=== PATIENT | male | born 1955 | race Hispanic/Latino ===

== ENCOUNTER → 2024-04-24 | Outpatient (CLI) | payer OTHER ==
[2024-04-24 22:32] VITALS: PULSE 59; RESP 18
[2024-04-24 23:03] VITALS: PULSE 55; RESP 16
[2024-04-24 23:37] VITALS: PULSE 56; RESP 16
[2024-04-25] VITALS (11 sets, daily range): PULSE 44–117; RESP 14–20
== END | disposition home or self-care (01) ==
LOC: SLP 20:06
PROVIDERS: ATTEND Internal Medicine Cardiovascular Disease
DX: G47.33 Obstructive sleep apnea (adult) (pediatric) (principal)
CPT/HCPCS: 95810

== ENCOUNTER 2024-04-29 18:28 | Emergency (ER) | payer OTHER ==
[~2024-04-29] VITALS: Ht 172.7 cm; Wt 117.9 kg
[2024-04-29 18:39] VITALS: BP 133/76; PULSE 69; RESP 18; TEMP 98.3; O2SAT 97
[2024-04-29] MEDS ORDERED: INDO50CA98 PO (18:47)
[2024-04-29] MEDS: HYDROcodone/APAP 5/325 1 TAB TABLET PO STA (18:49)
[2024-04-29] MEDS: ketOROlac 15MG/ML VIAL (15MG/ML) IM STA (18:50)
== END 2024-04-29 19:02 | disposition home or self-care (01) ==
LOC: EDH 18:28
DX: M10.9 Gout, unspecified (principal); I48.91 Unspecified atrial fibrillation; E78.00 Pure hypercholesterolemia, unspecified; I10 Essential (primary) hypertension; Z90.49 Acquired absence of other specified parts of digestive tract
CPT/HCPCS: 99283; 96372; J1885

== ENCOUNTER 2024-08-20 16:08 | Emergency (ER) | payer OTHER ==
[~2024-08-20] VITALS: Ht 172.7 cm; Wt 108.9 kg
[~2024-08-20 16:08] MED LIST: INDO50CA98 PO
--- NOTE | 2024-08-20 17:06 | ERN ---
General Chief Complaint: Cough Stated Complaint: FEVER, SORE THROAT, LOWER BACK HURTS Source: patient History of Present Illness Initial Comments PATIENT IS A 69-YEAR-OLD MALE COMING IN COMPLAINING OF COUGH AND CONGESTION. PATIENT STATES THAT HE HAS BEEN COUGHING SO MUCH THAT HIS BACK HURTS. PER PATIENT HE WAS EXPOSED TO URI BY . BOTH OF THEM ARE HAVING SIMILAR SYMPTOMS. Allergies: Coded Allergies: No Known Allergies (Unverified Allergy, Unknown, 08/20/24) Home Meds Active Scripts Indomethacin (Indomethacin) 50 Mg Capsule, 1 CAP PO TID for arthritis for 3 Days, #30 CAP 0 Refills with food Prov:JED HAHN NP 04/29/24 Past Medical History Past Medical History: A-Fib, High Cholesterol, Hypertension Past Surgical History: Appendectomy, Other Surgical History Other: ARM SX ROS Dictation CONSTITUTIONAL: NO CHILLS, NO FEVER, NO WEAKNESS, NO DIAPHORESIS, NO MALAISE. HEAD/FACE: NO SIGNS OF TRAUMA. EENT: NO EYE PAIN, NO BLURRED VISION, NO TEARING, NO DOUBLE VISION, NO EAR PAIN, NO EAR DISCHARGE, NO NOSE PAIN, NO NASAL CONGESTION, NO THROAT PAIN, NO THROAT SWELLING, NO MOUTH PAIN. RESPIRATORY: NO COUGH, NO ORTHOPNEA, NO SOB, NO STRIDOR, NO WHEEZING. CARDIOVASCULAR: NO CHEST PAIN, NO EDEMA, NO PALPITATIONS, NO SYNCOPE. GASTROINTESTINAL/ABDOMINAL: NO ABDOMINAL PAIN, NO CONSTIPATION, NO DIARRHEA, NO NAUSEA, NO VOMITING. GENITOURINARY: NO ABNORMAL DISCHARGE, NO DYSURIA, NO FREQUENT URINATION, NO HEMATURIA. NO COMPLAINTS OF PAIN IN THE GENITALS. MUSCULOSKELETAL: NO BACK PAIN, NO GOUT, NO JOINT PAIN, NO JOINT SWELLING, NO MUSCLE PAIN, NO MUSCLE STIFFNESS, NO NECK PAIN. INTEGUMENTARY: NO CHANGE IN COLOR, NO CHANGE IN HAIR/NAILS, NO DRYNESS, NO LESION, NO LUMPS, NO RASH. NEUROLOGICAL/PSYCH: NO ANXIETY, NOT DEPRESSED, NO EMOTIONAL PROBLEM, NO HEADACHE, NO NUMBNESS, NO PRE-EXISTING DEFICIT, NO HISTORY OF SEIZURES, NO TREMORS, NO WEAKNESS. HEMATOLOGIC/LYMPHATIC: NOT ANEMIC, NO HISTORY OF BLOOD CLOTS, NO APPARENT BLEEDING, NO BRUISING, GLANDS NOT SWOLLEN. ALL SYSTEMS NEGATIVE, EXCEPT NOTED. Physical Exam Physical Exam Dictation VITAL SIGNS: REVIEWED. GENERAL APPEARANCE: ALERT, ORIENTED X3, NO ACUTE DISTRESS, OBESE. HEAD AND FACE: NON-TRAUMATIC. EYES: PERRL, PINK CONJUNCTIVAS, EYELID NO TRAUMA, ANTERIOR CHAMBER CLEAR. EARS: PINNAS INTACT AND NO SIGNS OF TRAUMA OR ERYTHEMA. EAR CANALS CLEAR AND NO DISCHARGE. TMS NO ERYTHEMA. NOSE: NO DISCHARGE, NO BLEEDING. OROPHARYNX: MOUTH NORMAL, TEETH NO CARIES, TONGUE PINK. PHARYNX CLEAR, NO ERYTHEMA. TONSILS NO EXUDATES, NO ABSCESSES NOTED. MUCOUS MEMBRANE MOIST. NECK: SUPPLE, NON-TENDER, NO THYROMEGALY, NO MASSES, NO JVD, NO BRUITS. BREAST: DEFERRED. CHEST: NO TENDERNESS, NO CREPITUS, NO PARADOXICAL MOVEMENT, NO RETRACTIONS. LUNGS: CLEAR, WELL-VENTILATED, SYMMETRIC, NO RALES, NO WHEEZING, NO RHONCHI, NO STRIDOR, GOOD BREATH SOUNDS BILATERALLY. HEART: REGULAR RATE, REGULAR RHYTHM, NO MURMUR, NO GALLOPS. VASCULAR: NO PERIPHERAL EDEMA. ABDOMEN: SOFT, POSITIVE BOWEL SOUNDS, NONDISTENDED, NO GUARDING, NONTENDER, NO REBOUND, NO MASSES NO HEPATOMEGALY, NO SPLENOMEGALY, NO MUNOZ'S SIGN, NO HERNIAS. RECTAL: DEFERRED. GENITAL: DEFERRED. NEUROLOGICAL: NORMAL SPEECH, GROSS MOTOR FUNCTION INTACT, GROSS SENSORY FUNCTION INTACT. MUSCULOSKELETAL: NECK NONTENDER, FULL RANGE OF MOTION, BACK NONTENDER, FULL RANGE OF MOTION. EXTREMITIES: NONTENDER, FULL RANGE OF MOTION. SKIN: COLOR PINK, DRY, NO TURGOR, NO RASH, NO LACERATIONS, NO ABRASIONS, NO CONTUSIONS. LYMPHATICS: DEFERRED. Results Laboratory and Microbiology Lab and Micro Result Laboratory Tests Test 08/20/24 17:00 Influenza Type A Antigen Negative For Type A Influenza Type B Antigen Negative For Type B SARS-CoV-2, RNA, NAAT NEGATIVE SARS CoV-2 Group A Streptococcus Rapid negative (NEGATIVE) Labs Reviewed?: Yes EKG/XRAY/US/CT/MRI X-RAY Comment CHEST XRAY- RIGHT PERIBRONCHIAL CONGESTION MDM MDM: DIFFERENTIAL DIAGNOSIS: INFLUENZA A, URI PATIENT IS A 69-YEAR-OLD MALE COMING IN TO BE EVALUATED FOR URI SYMPTOMS. WAS FOUND TO BE INFLUENZA A POSITIVE. PATIENT WILL BE DISCHARGED WITH TAMIFLU FOR INFLUENZA A. I ADVISED HIM APPROPRIATE FOLLOW UP WITH PCP IN 1-2 DAYS. ED Course Orders Procedure Category Date Status Time Covid Rna Naat LAB 08/20/24 Complete 16:38 Rapid (Group A Strep) LAB 08/20/24 Complete 16:38 Influenza Type A & B, LAB 08/20/24 Complete Rapid 16:38 Chest 1vw RAD 08/20/24 Taken 16:38 Vital Signs Date Time Temp Pulse Resp B/P (MAP) Pulse Ox O2 Delivery O2 Flow Rate FiO2 08/20/24 16:36 99.3 61 16 125/71 97 Room Air 0 DX & DISP Disposition: Discharge Departure Impression: Primary Impression: Influenza A Condition: Stable Scripts Doxycycline Hyclate (Doxycycline Hyclate) 100 Mg Capsule 1 CAP PO BID for 10 Days, #20 CAP 0 Refills Prov: OSMANY BENNETT MD 08/20/24 Oseltamivir Phosphate (Tamiflu) 75 Mg Cap 1 CAP PO BID for 5 Days, #10 CAP 0 Refills Prov: OSMANY BENNETT MD 08/20/24 Additional Instructions: FOLLOW-UP WITH PRIMARY CARE PROVIDER IN 1 TO 2 DAYS. TAKE MEDICATIONS DIRECTED HERE IN THE EMERGENCY ROOM. OKAY TO CONTINUE HOME MEDICATIONS UNLESS O THERWISE DISCUSSED DURING YOUR VISIT IN THE EMERGENCY ROOM TODAY. RETURN TO YOUR NEAREST EMERGENCY ROOM IF SYMPTOMS WORSEN OR IF THERE IS NO IMPROVEMENT. CALL 911 IF YOU NEED IMMEDIATE ASSISTANCE. TAKE TYLENOL [id number] NEEDED AND IF NO CONTRAINDICATIONS ARE PRESENT. INCREASE ORAL HYDRATION. A WOUND CULTURE OR URINE CULTURE WAS ORDERED HERE IN THE EMERGENCY ROOM DEPARTMENT PLEASE FOLLOW-UP WITH PRIMARY CARE PROVIDER AND ADVISE THEM TO GET REPEAT PORTS FROM OUR FACILITY. IF YOU HAD ANY STEVE WRAP/SPLINTS THAT WERE APPLIED HERE, PLEASE DO NOT REMOVE THEM UNTIL YOU SEE YOUR PRIMARY CARE OR SPECIALTY. REFERRALS: Referrals: YOAV DING MD (PCP) Time of Disposition: 18:09 OSMANY BENNETT MD Aug 20, 2024 17:06
[2024-08-20 17:48] LABS: RAPID GROUP A STREP negative (NEGATIVE); SARS-CoV-2, RNA, NAAT NEGATIVE SARS CoV-2 (NEGATIVE)
[2024-08-20 17:58] LABS: INFLUENZA TYPE A Negative For Type A (NEGATIVE); INFLUENZA TYPE B Negative For Type B (NEGATIVE)
[2024-08-20] MEDS ORDERED: OSEL75 PO (18:10)
[2024-08-20] MEDS ORDERED: DOXY100C5 PO (18:10)
[2024-08-20 18:21] VITALS: BP 126/71; PULSE 65; RESP 17; TEMP 99.1; O2SAT 98
--- NOTE | 2024-08-20 20:17 | HMCIMG ---
CHEST 1VW REASON: COUGH COMPARISON: None. FINDINGS: Single view of the chest was obtained. Lungs are clear. Heart size is normal. There is no pulmonary vascular congestion. Mediastinum and bony thorax appear unremarkable. IMPRESSION: 1. Normal single view chest x-ray.
== END 2024-08-20 18:29 | disposition home or self-care (01) ==
LOC: EDH 16:08
DX: J10.1 Influenza due to other identified influenza virus with other respiratory manifestations (principal); I48.91 Unspecified atrial fibrillation; E78.00 Pure hypercholesterolemia, unspecified; I10 Essential (primary) hypertension; Z90.49 Acquired absence of other specified parts of digestive tract; Z20.822 Contact with and (suspected) exposure to COVID-19
CPT/HCPCS: 71045; 87635; 87804; 87880; 99284

== ENCOUNTER 2024-09-04 18:16 | Emergency (ER) | payer OTHER ==
[~2024-09-04] VITALS: Ht 172.7 cm; Wt 100.7 kg
[~2024-09-04 18:16] MED LIST changes: +DOXY100C5 PO; +OSEL75 PO
[2024-09-04 21:16] LABS: BASOPHILS # (AUTO) 0.04 K/uL (0.00-0.20); BASOPHILS % (AUTO) 0.7 % (0.0-5.0); EOSINOPHILS # (AUTO) 0.17 K/uL (0.00-0.70); EOSINOPHILS % (AUTO) 3.1 % (0.0-8.0); HEMATOCRIT 45.5 % (42-54); IMMATURE GRANULOCYTE ABSOLUTE 0.02 K/uL (0-1); LYMPHOCYTES # (AUTO) 1.3 K/uL (1.0-4.8); LYMPHOCYTES % (AUTO) 24.2 % (21.0-51.0); MEAN CORPUSCULAR HEMOGLOBIN 31.7 pg (27.0-33.0); MEAN CORPUSCULAR HGB CONC 33.4 g/dL (32.0-36.0); MONOCYTES # (AUTO) 0.6 K/uL (0.1-1.0); MONOCYTES % (AUTO) 11.8 % (3.0-13.0); NEUTROPHILS # (AUTO) 3.2 K/uL (1.8-7.7); NEUTROPHILS % (AUTO) 59.8 % (40.0-77.0); PLATELET COUNT (AUTO) 140 K/uL (130-400); RED BLOOD CELL COUNT(AUTO) 4.79 MIL/uL (4.50-6.20); RED CELL DISTRIBUTION WIDTH 12.3 % (11.0-15.5); WHITE BLOOD COUNT (AUTO) 5.4 K/uL (4.8-10.8)
[2024-09-04 21:22] LABS: CREATININE 1.4 mg/dL (0.5-1.3); INR 1.59 (0.85-1.15); POTASSIUM 3.7 mmol/L (3.5-5.1); PROTHROMBIN TIME 16.1 SEC (9.6-11.6)
--- NOTE | 2024-09-04 21:37 | HMCIMG ---
US VENOUS DOPPLER UNILATERAL HISTORY: Left lower abdominal pain COMPARISON: None TECHNIQUE: Left lower extremity venous Doppler ultrasound study was performed. FINDINGS: The left common femoral, femoral, popliteal, and posterior tibial veins are visualized. Normal flow with augmentation and compressibilities are demonstrated. Left greater saphenous vein is patent. There is left suprapatellar bursitis measuring 5.3 x 1.2 x 5.1 cm IMPRESSION: 1. No evidence of deep venous thrombosis is seen. Left knee suprapatellar bursitis.
--- NOTE | 2024-09-04 21:42 | HMCIMG ---
KNEE 3VWS LT HISTORY: Pain and swelling COMPARISON: None TECHNIQUE: 3 images of left knee were obtained. FINDINGS: There is no acute displaced fracture or dislocation. Degenerative changes are seen. IMPRESSION: 1. Findings as described above.
[2024-09-04 22:32] LABS: ERYTHROCYTE SEDIMENTATION RATE 21 MM/HR (0-20)
[2024-09-04] MEDS ORDERED: PRED20TA3 PO (23:42)
--- NOTE | 2024-09-04 23:42 | ERN ---
General Chief Complaint: Knee Injury/Swelling Stated Complaint: KNEE PAIN Time Seen by MD: 18:22 Time Seen by Midlevel: 18:22 Source: patient History of Present Illness Initial Comments 69-year-old male who presents to the emergency department due to left knee pain onset yesterday. Patient reports he has been noticing swelling but denies any injuries, trauma, fevers, numbness or further associated symptoms. Patient states he has been previously diagnosed with gout but is no longer taking medication. Last gout flare-up was approximately two years ago. PMHx AFib, hypercholesterolemia, HTN Allergies: Coded Allergies: No Known Allergies (Unverified Allergy, Unknown, 08/20/24) Home Meds Active Scripts Prednisone (Prednisone) 20 Mg Tablet, 1 TAB PO DAILY for 5 Days, #5 TAB 0 Refills Prov:FLORY WALKER 09/04/24 Doxycycline Hyclate (Doxycycline Hyclate) 100 Mg Capsule, 1 CAP PO BID for 10 Days, #20 CAP 0 Refills Prov:OSMANY BENNETT MD 08/20/24 Oseltamivir Phosphate (Tamiflu) 75 Mg Cap, 1 CAP PO BID for 5 Days, #10 CAP 0 Refills Prov:OSMANY BENNETT MD 08/20/24 Indomethacin (Indomethacin) 50 Mg Capsule, 1 CAP PO TID for arthritis for 3 Days, #30 CAP 0 Refills with food Prov:JED HAHN NP 04/29/24 Past Medical History Past Medical History: A-Fib, High Cholesterol, Hypertension Past Surgical History: Appendectomy, Other Surgical History Other: ARM SX ROS Dictation Constitutional: Negative for fever,chills, and weight loss Eyes: Negative for injury, pain,redness, and discharge ENT: Negative for injury,pain or swelling Cardiovascular: Negative for chest pain, palpitations, and edema Respiratory: Negative for shortness of breath, cough, and wheezing, Abdomen/GI: Negative for abdominal pain, nausea, vomiting, diarrhea, and constipation Back: Negative for injury and pain : Negative for painful urination, bleeding or discharge MS/Extremity: Positive for left knee pain Negative for injury and deformity Skin: Negative for rash, and discoloration Neuro: Negative for headache, weakness, numbness, tingling, and seizure Psych: Negative for suicide ideation, homicidal ideation, and hallucinations Physical Exam Physical Exam Dictation General: awake, alert, no acute distress Head/Face: Normocephalic, atraumatic Eyes: PERRL, EOMI, normal conjuctiva ENT: oral cavity clear, TMs clear, oral mucosa moist Neck: Supple, normal range of motion Cardiovascular: RRR, normal S1/S2 Respiratory: CTAB, no respiratory distress, no rales or wheezes Abdomen: Soft, non-tender, non-distended, normal bowel sounds, no guarding or rebound. Skin: Warm, dry, normal turgor, no rash MS/Extremity: Pulses equal, no cyanosis, neurovascular intact, FROM Neuro: COAx4, GCS 15, strength 5/5, CN 2-12 intact, normal cerebellar exam, normal gait, Psych: Normal behavior, mood, and affect normal Results Laboratory and Microbiology Lab and Micro Result Laboratory Tests Test 09/04/24 20:32 White Blood Count 5.4 K/uL (4.8-10.8) Red Blood Count 4.79 MIL/uL (4.50-6.20) Hemoglobin 15.2 g/dL (14.0-18.0) Hematocrit 45.5 % (42-54) Mean Corpuscular Volume 95.0 fL (79-99) Mean Corpuscular Hemoglobin 31.7 pg (27.0-33.0) Mean Corpuscular Hemoglobin Concent 33.4 g/dL (32.0-36.0) Red Cell Distribution Width 12.3 % (11.0-15.5) Platelet Count 140 K/uL (130-400) Mean Platelet Volume 10.6 fL (7.5-10.5) H Immature Granulocyte % (Auto) 0.4 % (0-1) Neutrophils (%) (Auto) 59.8 % (40.0-77.0) Lymphocytes (%) (Auto) 24.2 % (21.0-51.0) Monocytes (%) (Auto) 11.8 % (3.0-13.0) Eosinophils (%) (Auto) 3.1 % (0.0-8.0) Basophils (%) (Auto) 0.7 % (0.0-5.0) Neutrophils # (Auto) 3.2 K/uL (1.8-7.7) Lymphocytes # (Auto) 1.3 K/uL (1.0-4.8) Monocytes # (Auto) 0.6 K/uL (0.1-1.0) Eosinophils # (Auto) 0.17 K/uL (0.00-0.70) Basophils # (Auto) 0.04 K/uL (0.00-0.20) Absolute Immature Granulocyte (auto 0.02 K/uL (0-1) Nucleated Red Blood Cells 0.0 % (0.0-0.19) Erythrocyte Sedimentation Rate 21 MM/HR (0-20) H Prothrombin Time 16.1 SEC (9.6-11.6) H Prothromb Time International Ratio 1.59 (0.85-1.15) H Activated Partial Thromboplast Time 40.0 SEC (26.3-35.5) H Sodium Level 137 mmol/L (136-145) Potassium Level 3.7 mmol/L (3.5-5.1) Chloride Level 103 mmol/L (101-111) Carbon Dioxide Level 33 mmol/L (21-32) H Blood Urea Nitrogen 23 mg/dL (7-18) H Creatinine 1.4 mg/dL (0.5-1.3) H Glomerular Filtration Rate Calc 55 mL/min (>90) Random Glucose 95 mg/dL (70-105) Total Calcium 8.5 mg/dL (8.5-10.1) Labs Reviewed?: Yes EKG/XRAY/US/CT/MRI X-RAY Comment REASON: Pain, swelling ORDERING PHYSICIAN: FLORY WALKER PROCEDURE: KNEE 3V LT - KNEE 3VWS LT KNEE 3VWS LT HISTORY: Pain and swelling COMPARISON: None TECHNIQUE: 3 images of left knee were obtained. FINDINGS: There is no acute displaced fracture or dislocation. Degenerative changes are seen. IMPRESSION: 1. Findings as described above. DICTATED BY: LORE GA MD DATE: 09/04/242136 Ultrasound Comment REASON: LEFT LE PAIN ORDERING PHYSICIAN: FLORY WALKER PROCEDURE: VENOUS UNI - US VENOUS DOPPLER UNILATERAL US VENOUS DOPPLER UNILATERAL HISTORY: Left lower abdominal pain COMPARISON: None TECHNIQUE: Left lower extremity venous Doppler ultrasound study was performed. FINDINGS: The left common femoral, femoral, popliteal, and posterior tibial veins are visualized. Normal flow with augmentation and compressibilities are demonstrated. Left greater saphenous vein is patent. There is left suprapatellar bursitis measuring 5.3 x 1.2 x 5.1 cm IMPRESSION: 1. No evidence of deep venous thrombosis is seen. Left knee suprapatellar bursitis. DICTATED BY: LORE GA MD DATE: 09/04/242132 [facility] MDM: Differential diagnosis: Fracture, subluxation, strain, sprain, osteoarthritis, gout Rationale: 69-year-old male who presents to the emergency department due to left knee pain onset yesterday. Patient reports he has been noticing swelling but denies any injuries, trauma, fevers, numbness or further associated symptoms. Patient states he has been previously diagnosed with gout but is no longer taking medication. Last gout flare-up was approximately two years ago. PMHx AFib, hypercholesterolemia, HTN Per physical examination no elevated WBC, sed rate mildly elevated at 21. Based on patient's left calf and thigh tenderness on physical examination venous ultrasound performed to the left lower extremity to rule out DVTs. Ultrasound negative for DVT but indicates suprapatellar bursitis. X-ray of the left knee indicates no acute fractures, dislocations. Per physical examination patient has limited range of motion of the left knee, tenderness to palpation, stephanie rovascularly intact. Initial dose of steroid administered in the ED. Case discussed with Dr. Roman ED attending, she evaluated patient and recommended patient be prescribed steroids for osteoarthritis diagnosis. Patient was educated on findings and diagnosis. Advised to follow up with PCP. Return to the emergency department if any worsening symptoms. Patient verbalized underst anding. Patient stable for discharge. Ed course delayed due to pending official ultrasound report. There are no social concerns with this patient. I independently interpreted the test that were performed, results were reviewed by me and considered findings on radiology if ordered. Medical management and examination interpretation discussions were had by me with other qualified healthcare professionals as indicated for the patient's care. ED Course Orders Procedure Category Date Status Time Cbc With Differential LAB 09/04/24 Complete 19: Basic Metabolic Panel LAB 09/04/24 Complete 19: Pt And Ptt LAB 09/04/24 Complete 19:26 Erythrocyte LAB 09/04/24 Complete Sedimentation Rate 19:26 Knee 3vws Lt RAD 09/04/24 Resulted 19:26 Us Venous Doppler US 09/04/24 Resulted Unilateral 19:26 Dexamethasone 4mg/Ml PHA 09/04/24 Complete 1ml Vial (Dexametha 23:30 Current Medications Medications (Trade) Dose Ordered Sig/Lauren Route PRN Reason Start Time Stop Time Status Last Admin Dose Admin Dexamethasone Sodium Phosphate (dexaMETHasone 4MG/ML 1ML VIAL) 4 mg ONCE ONCE IM 09/04/24 23:30 09/04/24 23:31 DC 09/04/24 23:49 Vital Signs Date Time Temp Pulse Resp B/P (MAP) Pulse Ox O2 Delivery O2 Flow Rate FiO2 09/04/24 23:46 98.6 70 20 132/77 100 Room Air* 0 21 09/04/24 22:07 98.6 66 20 138/74 100 Room Air* 0 21 09/04/24 18:47 98.2 79 16 135/70 97 Room Air DX & DISP Disposition: Discharge Departure Impression: Primary Impression: Osteoarthritis Additional Impression: Suprapatellar bursitis Condition: Stable Scripts Prednisone (Prednisone) 20 Mg Tablet 1 TAB PO DAILY for 5 Days, #5 TAB 0 Refills Prov: FLORY WALKER 09/04/24 Additional Instructions: Discharge home. Rest. Follow up with primary care DrAnnie in 24 hours. Return to the ER for any acute changes or worsening symptoms. If any medications were prescribed take as directed. Okay to continue home medications unless otherwise discussed during your visit in the emergency room today. Patient was also advised to follow-up with primary care physician in 1 to 2 days for continued monitoring. Referrals: EDER ROOT MD (PCP) I performed the substantive portion of the visit. I have reviewed and personally made and approve the management plan that is documented in the notes by myself or the REBECA. I acknowledge full responsibility for the patient's management plan. FLORY WALKER Sep 04, 2024 23:42
[2024-09-04 23:46] VITALS: BP 132/77; PULSE 70; RESP 20; TEMP 98.6; O2SAT 100
[2024-09-04] MEDS: dexaMETHasone SOD PHOSPHATE 4 MG/ML 1ML VIAL IM ONE (23:49)
== END 2024-09-04 23:53 | disposition home or self-care (01) ==
LOC: EDH 18:16
DX: M17.12 Unilateral primary osteoarthritis, left knee (principal); M70.52 Other bursitis of knee, left knee; I48.91 Unspecified atrial fibrillation; E78.00 Pure hypercholesterolemia, unspecified; I10 Essential (primary) hypertension; M79.662 Pain in left lower leg; Z79.52 Long term (current) use of systemic steroids; Z90.49 Acquired absence of other specified parts of digestive tract
CPT/HCPCS: 99285; 93971; 80048; 85025; 85610; 85730; 85651; 36415; 73562; 96372; J1100

== ENCOUNTER 2025-03-04 09:43 | Emergency (ER) | payer OTHER ==
[~2025-03-04] VITALS: Ht 172.7 cm; Wt 105.7 kg
[~2025-03-04 09:43] MED LIST changes: +PRED20TA3 PO
[2025-03-04 09:44] VITALS: BP 151/77; PULSE 78; RESP 16; TEMP 97.7
--- NOTE | 2025-03-04 10:40 | HMCIMG ---
EXAM: CR right Wrist, 3 View. CLINICAL HISTORY: r/o fx COMPARISON: None provided. FINDINGS: BONES: There is concern for an acute nondisplaced fracture of the distal radius. Old ununited ulnar styloid process fracture. JOINTS: No evidence of dislocation. Mild to moderate multilevel osteoarthritis. SOFT TISSUES: Soft tissue edema at the wrist. IMPRESSION: 1. Concern for acute nondisplaced fracture of the distal radius with associated soft tissue edema at the wrist. Recommend CT imaging for further evaluation. 2. Old ununited ulnar styloid process fracture. /[place]
[2025-03-04] MEDS ORDERED: KETO10TA2 PO (11:17)
--- NOTE | 2025-03-04 11:18 | ERN ---
General Chief Complaint: Hand Problem/Injury Stated Complaint: RT HAND PAIN/INJURY Time Seen by MD: 09:49 Time Seen by Midlevel: 09:49 Source: patient History of Present Illness Initial Comments Patient is a 69-year-old male presenting to the emergency department with pain and swelling to his right hand/right wrist. Patient states he had a tool fall and land on his right wrist. Denies any other injury. Allergies: Coded Allergies: No Known Allergies (Unverified Allergy, Unknown, 08/20/24) Home Meds Active Scripts Prednisone (Prednisone) 20 Mg Tablet, 1 TAB PO DAILY for 5 Days, #5 TAB 0 Refills Prov:FLORY WALKER 09/04/24 Doxycycline Hyclate (Doxycycline Hyclate) 100 Mg Capsule, 1 CAP PO BID for 10 Days, #20 CAP 0 Refills Prov:OSMANY BENNETT MD 08/20/24 Oseltamivir Phosphate (Tamiflu) 75 Mg Cap, 1 CAP PO BID for 5 Days, #10 CAP 0 Refills Prov:OSMANY BENNETT MD 08/20/24 Indomethacin (Indomethacin) 50 Mg Capsule, 1 CAP PO TID for arthritis for 3 Days, #30 CAP 0 Refills with food Prov:JED HAHN NP 04/29/24 Past Medical History Past Medical History: A-Fib, High Cholesterol, Hypertension Past Surgical History: Appendectomy, Other Surgical History Other: ARM SX ROS Dictation CONSTITUTIONAL: Negative except for HPI HEAD/FACE: Negative except for HPI EENT: Negative except for HPI RESPIRATORY: Negative except for HPI GASTROINTESTINAL/ABDOMINAL: Negative except for HPI GENITOURINARY: Negative except for HPI MUSCULOSKELETAL: Negative except for HPI INTEGUMENTARY: Negative except for HPI NEUROLOGICAL/PSYCH: Negative except for HPI HEMATOLOGIC/LYMPHATIC: Negative except for HPI All Systems Negative, Except as noted above. 13 point review of systems assessed and all negative except for above. Physical Exam Physical Exam Dictation Vital Signs reviewed General Appearance: Alert, oriented x 3, no acute distress, well developed, nourished. Head and Face: non-traumatic. Eyes: PERRL, pink conjunctivas, eyelid no trauma, anterior chamber with arcus senilis. Ears: Pinnas intact and no signs of trauma or erythema ear canals clear and no discharge TM no erythema Nose: No discharge, no bleeding. Oropharynx: Mouth normal, tongue pink, pharynx clear,no erythema, tonsils no exudates, no abscesses noted, mucous membrane moist Neck: Supple, non-tender, no thyromegaly, no masses, no JVD, no bruits Breast:Deferred Chest:No tenderness, no crepitus, no paradoxical movement, no retractions Lungs:Clear, well-ventilated, symmetric, no rales, no wheezing, no rhonchi, no stridor, good breath sounds bilaterally Heart: Regular rate, regular rhythm, no murmur, no gallops Vascular: no peripheral edema, Abdomen: Soft, positive bowel sounds, nondistended, no guarding, nontender, no rebound, no masses no hepatomegaly, no splenomegaly, no Salazar's sign, no hernias. Rectal: Deferred Genital: Deferred Neurological: Normal speech, motor function intact, sensory function intact Musculoskeletal: Neck nontender, full range of motion, back nontender, full range of motion, Extremities: There is moderate amount of swelling to the dorsal aspect of the right hand and right wrist, range of motion is restricted secondary to pain, good radial pulse, sensation intact, Skin: Color pink, dry, no turgor, no rash, no lacerations, no abrasions, no cont usions. Lymphatic: Deferred MDM MDM: Patient is a 69-year-old male presenting to the emergency department with pain and swelling to his right hand/right wrist. Patient states he had a tool fall and land on his right wrist. Denies any other injury. There is moderate amount of swelling to the dorsal aspect of the right hand and right wrist, range of motion is restricted secondary to pain, good radial pulse, sensation intact. X-ray of the right wrist findings concerning for an acute nondisplaced fracture of the distal radius with associated soft tissue edema at the wrist. Radiologist is recommending CT scan of the area for further evaluation. There was also an old ununited ulnar styloid process fracture. A posterior splint was placed and the patient will be referred to transit specialist for outpatient management. Differential diagnosis: Fracture, contusion, dislocation There are no social concerns with this patient. Prescription drug management Prescriptions will include: Toradol Medical management and examination interpretation discussions were had by me with other qualified healthcare professionals as indicated for the patient's care. ED Course Orders Procedure Category Date Status Time Hand 3+Vws Rt RAD 03/04/25 Resulted 09:51 Wrist Comp 3+Vws Rt RAD 03/04/25 Resulted 09:51 Morphine 2mg Syg PHA 03/04/25 Complete (Morphine 2mg Syg) 10:00 Acetaminophen 500mg PHA 03/04/25 Complete Tab (Tylenol 500mg T 10:00 *Nursing CPOE 03/04/25 Transmitted Communication: 10:14 Current Medications Medications (Trade) Dose Ordered Sig/Lauren Route PRN Reason Start Time Stop Time Status Last Admin Dose Admin Acetaminophen (TYLenol 500MG TAB) 1,000 mg ONCE ONCE PO 03/04/25 10:00 03/04/25 10:01 DC 03/04/25 10:00 Morphine Sulfate (morPHINE 2MG SYG) 2 mg ONCE ONCE IM 03/04/25 10:00 03/04/25 10:01 DC 03/04/25 10:00 Vital Signs Date Time Temp Pulse Resp B/P (MAP) Pulse Ox O2 Delivery O2 Flow Rate FiO2 03/04/25 09:44 97.7 78 16 151/77 96 Room Air 0 [place] [address] [address] IMAGING REPORT Signed PATIENT: BECK TAMAYO MR#: [id number] : 1955 SEX: M AGE: 69 LOCATION: ED ORDER STATUS: [facility] REPORT#: [id number] SERVICE [id number] REASON: r/o fx ORDERING PHYSICIAN: EDER MALDONADO PROCEDURE: WRST 3V RT - WRIST COMP 3+VWS RT EXAM: CR right Wrist, 3 View. CLINICAL HISTORY: r/o fx COMPARISON: None provided. FINDINGS: BONES: There is concern for an acute nondisplaced fracture of the distal radius. Old ununited ulnar styloid process fracture. JOINTS: No evidence of dislocation. Mild to moderate multilevel osteoarthritis. SOFT TISSUES: Soft tissue edema at the wrist. IMPRESSION: 1. Concern for acute nondisplaced fracture of the distal radius with associated soft tissue edema at the wrist. Recommend CT imaging for further evaluation. 2. Old ununited ulnar styloid process fracture. /[place] DICTATED BY: MILI LEGGETT Jr., MD DATE: 03/04/25 114 ELECTRONICALLY SIGNED BY: MILI LEGGETT Jr., MD DATE: 03/04/25 1140 DX & DISP Disposition: Discharge Departure Impression: Primary Impression: Nondisplaced fracture of distal end of right radius Condition: Stable Scripts Ketorolac Tromethamine (Ketorolac Tromethamine) 10 Mg Tablet 1 TAB PO BID for pain for 5 Days, #10 TAB 0 Refills Prov: EDER MALDONADO 03/04/25 Referrals: EDER ROOT MD (PCP) I have reviewed the case, and I agree with, Diagnosis and Plan I performed the substantive portion of the visit. I have reviewed and personally made and approve the management plan that is documented in the note by myself or the REBECA. I acknowledge for responsibility for the patient's management plan. EDER MALDONADO Mar 04, 2025 11:18
== END 2025-03-04 11:29 | disposition home or self-care (01) ==
LOC: EDH 09:43
DX: S52.501A Unspecified fracture of the lower end of right radius, initial encounter for closed fracture (principal); I48.91 Unspecified atrial fibrillation; E78.00 Pure hypercholesterolemia, unspecified; I10 Essential (primary) hypertension; Z79.52 Long term (current) use of systemic steroids; Z90.49 Acquired absence of other specified parts of digestive tract; W18.39XA Other fall on same level, initial encounter; Y93.89 Activity, other specified; Y92.89 Other specified places as the place of occurrence of the external cause; Y99.8 Other external cause status
CPT/HCPCS: 99284; 73130; 73110; 29125; 96372; J2270